=== PATIENT | female | born 1990 | race Caucasian/White ===

== ENCOUNTER → 2016-08-16 | Outpatient (CLI) | payer OTHER ==
--- NOTE | 2016-08-16 17:29 | PCVCIMAG ---
APPROVED REPORT Study performed: 08/16/2016 08:58:54 EXAM: Comprehensive 2D, Doppler, and color-flow Echocardiogram Patient Location: Echo lab Status: routine Other Information Study Quality: Good Indications Dizziness and Vertigo Palpitations 2D Dimensions LVEF(%): 59.26 (>50%) IVSd: 6.74 (7-11mm)LVOT Diam: 17.89 (18-24mm) LVDd: 39.21 mm PWd: 7.62 (7-11mm)Ascending Ao: 24.18 (22-36mm) LVDs: 27.07 (25-40mm) Left Atrium: 19.55 (27-40mm) Aortic Root: 19.51 mm LV Single Plane 4CH: 59.23 % LV Single Plane 2CH: 65.47 %Sanches's LVEF: 62.35 % Biplane EF: 62.6 % Volumes Left Atrial Volume (Systole) Single Plane 4CH: 15.36 mLSingle Plane 2CH: 21.99 mL LA ESV Index: 11.00 mL/m2 Aortic Valve AoV Peak Juan.: 1.31 m/s AO Peak Gr.: 6.82 mmHgLVOT Max P.61 mmHg LVOT Max V: 0.95 m/s ROBIN Vmax: 1.83 cm2 Mitral Valve E/A Ratio: 1.5 MV Decel. Time: 189.78 ms MV E Max Juan.: 0.74 m/s MV A Juan.: 0.51 m/s IVRT: 86.51 ms Pulmonary Valve PV Peak Juan.: 0.88 m/sPV Peak Gr.: 3.09 mmHg Pulmonary Vein P Vein S: 0.29 m/sP Vein A: 0.38 m/s P Vein D: 0.62 m/sP Vein A Dur.: 128.0 msec P Vein S/D Ratio: 0.47 Tricuspid Valve TV Vmax: 0.74 m/s Left Ventricle The left ventricle is normal size. There is normal LV segmental wall motion. There is normal left ventricular wall thickness. Left ventricular systolic function is normal. The left ventricular ejection fraction is within the normal range. LVEF is 55-60%. The left ventricular diastolic function is normal. Right Ventricle The right ventricle is normal size. The right ventricular systolic function is normal. Atria The left atrium size is normal. The right atrium size is normal. Aortic Valve The aortic valve is normal in structure. No aortic regurgitation is present. There is no aortic valvular stenosis. Mitral Valve The mitral valve is normal in structure. There is no mitral valve regurgitation noted. No evidence of mitral valve stenosis. Tricuspid Valve The tricuspid valve is normal in structure. There is no tricuspid valve regurgitation noted. Pulmonic Valve The pulmonary valve is normal in structure. There is no pulmonic valvular regurgitation. Great Vessels The aortic root is normal in size. The ascending aorta is normal in size. IVC is normal in size and collapses with >50% inspiration The pulmonary artery is normal. Pericardium There is no pericardial effusion. There is no pleural effusion. <Conclusion> The left ventricle is normal size. LVEF is 55-60%. The aortic valve is normal in structure. The mitral valve is normal in structure. The tricuspid valve is normal in structure. The pulmonary valve is normal in structure. The ascending aorta is normal in size.
== END | disposition home or self-care (01) ==
LOC: PCVCIMAG 09:30
PROVIDERS: ATTEND Internal Medicine
DX: E78.5 Hyperlipidemia, unspecified (principal)
CPT/HCPCS: 93306